=== PATIENT | male | born 1995 | race Hispanic/Latino ===

== ENCOUNTER 2019-06-12 11:52 | Emergency (ER) | payer OTHER ==
[2019-06-12] MEDS ORDERED: KETOROLAC TROMETHAMINE 60 MG/2 ML VIAL ONE (12:31)
[2019-06-12] MEDS ORDERED: DIAZEPAM 5 MG TABLET ONE (12:32)
[2019-06-12] MEDS ORDERED: LIDOCAINE 5% TOPICAL PATCH TP ONE (12:32)
[2019-06-12] MEDS ORDERED: DEXAMETHASONE SOD PHOSPHATE 10MG/ML 1ML VIAL ONE (13:48)
== END 2019-06-12 14:07 | disposition home or self-care (01) ==
LOC: EDH 11:52
DX: M62.830 Muscle spasm of back (principal); Z72.0 Tobacco use
CPT/HCPCS: 96372 ×2; 99284; J1100; J1885